=== PATIENT | female | born 1945 | race Two or more races ===

== ENCOUNTER 2025-06-01 06:59 | Day surgery (SDC) | payer MEDICARE ==
[~2025-06-01] VITALS: Ht 149.9 cm; Wt 57.6 kg
[2025-06-01] VITALS (7 sets, daily range): BP systolic 126–163; BP diastolic 59–74; PULSE 57–78; RESP 12–16; O2SAT 96–100
[~2025-06-01 06:59] MED LIST: ACET1CAP14 PO; ASPI1TAB20 PO; GLIP5TAB21 PO; LEVO25TA6 PO; LINA5TAB PO; MEMA1TAB5 PO; OMEP20TA PO; ROSU20TA14 PO
[2025-06-01] MEDS: IODIXANOL 320MG/ML 100ML BTL IV ONE (07:49)
[2025-06-01] MEDS: VERAPAMIL 2.5MG/ML INJ 2ML VIAL IV ONE (08:37)
[2025-06-01] MEDS: HEPARIN SODIUM (PORCINE) 5000 UNITS/ML 1ML VIAL ONE (08:37)
[2025-06-01] MEDS: NITROGLYCERIN 50MG/250ML 250 ML IV ONE (08:38)
[2025-06-01] MEDS: LIDOCAINE 2%HCL (LOCAL ANESTH.) INJ 20ML MDV ONE (08:38)
[2025-06-01] MEDS: ANGIOMAX 250 MG VIAL IV ONE (08:42)
[2025-06-01] MEDS: SODIUM CHL 0.9% 0 ML ONE (08:42)
[2025-06-01] MEDS ORDERED: NORT25CA PO (08:43)
[2025-06-01] MEDS ORDERED: LOSA-533 PO (08:43)
[2025-06-01] MEDS ORDERED: METO25TA93 PO (08:43)
[2025-06-01] MEDS: fentaNYL CITRATE 100 MCG/2 ML VL ONE (08:54)
[2025-06-01] MEDS: MIDAZOLAM HCL 2MG/2ML 2ml VIAL (1mg/ml) ONE (08:54)
--- NOTE | 2025-06-01 10:19 | DVHOP2 ---
Operative Report Procedures performed: Left heart catheterization and bilateral coronary angiogram Moderate sedation Diagnosis: Nonobstructive coronary artery disease Mild to Moderate systolic compression of ramus intermedius artery LVEF of 50% with normal EDP Cardiac suggestion for management: Optimized medical therapy Lifestyle and risk factor modifications Findings: LVEF: 50% LVEDP: 3 mm Hg Left main: Left main was coming off the left sinus of Valsalva. It was free of disease. Ramus intermedius: Ramus intermedius was a large caliber vessel which came off the left main. In its proximal section, component of systolic compression was seen. Ramus intermedius throughout its course and branches revealed mild disease. LAD: LAD was coming off the left main. It provided to small-sized diagonals. LAD throughout its course and branches revealed minor luminal irregularities. LCX: LCX was coming off the left main. It provided a medium-sized 1st obtuse marginal. LCX throughout its course and branches was free of disease. RCA: RCA was coming off the right sinus of Valsalva. It was the dominant vessel and provided RPDA. Proximal to distal RCA revealed [id number] diffuse disease. RPDA/RPLS were free of disease. Presentation: Patient is a 79-year-old female who presented to the office with shortness of breath. Past medical history includes hypothyroidism, hypertension, hyperlipidemia, diabetes mellitus, CKD, insomnia and she is a cigarette smoker. Echocardiogram in [facility] revealed ejection fraction of 40-45%. Patient was sent for cardiac catheterization. Procedure: After obtaining informed consent, the patient was brought to the senior label specialist. She was prepped and draped in sterile fashion. Right radial artery was used for access site. 1 mg of Versed and 50 mcg of fentanyl were used for moderate sedation. Using Seldinger technique, the right radial artery was accessed and a 6 [place] slender sheath was inserted into it. 2.5 mg of ve rapamil and 100 mcg of nitroglycerin were given as a cocktail into the right radial sheath. 3000 units of heparin was given peripherally. Five [place] tiger 4 diagnostic catheter was used to perform left heart catheterization (obtaining pressures and performing left ventriculography) and bilateral coronary angiography. We did recognize the systolic compression of ramus intermedius. We did recognize [id number] diffuse disease in RCA. There was no indication for any transcatheter revascularization. Total bleeding was less than 5 mL. There was no dissection/hematoma/perforation. Patient tolerated the procedure with no complication. Right radial artery access site was managed by deploying a TR band. Fluoroscopy time: 2.1 minutes contrast: 45 mL of ALBA Locke MD Jun 01, 2025 10:19
== END 2025-06-01 12:10 | disposition home or self-care (01) ==
LOC: CATH 06:59
PROVIDERS: ATTEND Internal Medicine Cardiovascular Disease
DX: I25.10 Atherosclerotic heart disease of native coronary artery without angina pectoris (principal); R94.39 Abnormal result of other cardiovascular function study; R06.02 Shortness of breath; E03.9 Hypothyroidism, unspecified; I12.9 Hypertensive chronic kidney disease with stage 1 through stage 4 chronic kidney disease, or unspecified chronic kidney disease; E11.22 Type 2 diabetes mellitus with diabetic chronic kidney disease; N18.9 Chronic kidney disease, unspecified; E78.5 Hyperlipidemia, unspecified; G47.00 Insomnia, unspecified; F17.210 Nicotine dependence, cigarettes, uncomplicated; Z79.82 Long term (current) use of aspirin; Z79.84 Long term (current) use of oral hypoglycemic drugs; Z79.899 Other long term (current) drug therapy; Z98.890 Other specified postprocedural states
CPT/HCPCS: 93458; C1887; C1894; J1644; J2250; J3010; J7030; Q9967; 99152